=== PATIENT | female | born 1960 | race Caucasian/White ===

== ENCOUNTER 2018-10-22 06:10 | Inpatient (IN) | payer OTHER ==
[2018-10-22] MEDS ORDERED: SEVOFLURANE 15 MIN (07:00)
[2018-10-22] MEDS: POLYMYXIN/BACITRACIN 1L IRRIG (07:47)
[2018-10-22] MEDS ORDERED: MIDAZOLAM 1 MG/ML 2 ML INJ (08:37)
[2018-10-22] MEDS: POLYMYXIN/BACITRACIN 1L IRRIG IRR (11:54)
[2018-10-22] MEDS ORDERED: CEFAZOLIN 1 GM INJ (11:58)
[2018-10-22] MEDS ORDERED: LIDOCAINE 2% (SDV) 5 ML INJ (11:58)
[2018-10-22] MEDS ORDERED: ONDANSETRON 4 MG INJ (11:58)
[2018-10-22] MEDS ORDERED: ROCURONIUM 50 MG INJ (11:58)
[2018-10-22] MEDS ORDERED: PROPOFOL 20 ML (11:58)
[2018-10-22] MEDS ORDERED: ROPIVACAINE 0.5 % 30 ML VIAL (12:00)
[2018-10-22] MEDS ORDERED: hydrALAzine 20 MG INJ IV ×2 (13:00→21:30)
[2018-10-22] MEDS ORDERED: NALOXONE (0.4 MG/ML) INJ IV (13:00)
[2018-10-22] MEDS ORDERED: DIPHENHYDRAMINE 50 MG INJ IV (13:00)
[2018-10-22] MEDS ORDERED: ONDANSETRON 4 MG INJ IV ×2 (13:00→21:30)
[2018-10-22] MEDS ORDERED: LABETALOL HCL 20MG INJ IV (13:00)
[2018-10-22] MEDS ORDERED: METOCLOPRAMIDE 10 MG INJ IV (13:00)
[2018-10-22] MEDS ORDERED: MEPERIDINE 25 MG INJ IV (13:00)
[2018-10-22] MEDS ORDERED: KETOROLAC 30 MG INJ IV (13:00)
[2018-10-22] MEDS ORDERED: FENTAnyl 50 MCG/ML VIAL IV (13:00)
[2018-10-22] MEDS ORDERED: HYDROmorphONE 1 MG/5 ML IV SYRINGE IV ×2 (13:00)
[2018-10-22] MEDS: ATENOLOL 25 MG TAB PO (15:59)
[2018-10-22] MEDS: ATORVASTATIN 40 MG TAB PO (20:09)
[2018-10-22] MEDS: OXYCODONE/ACETAMINOPHEN (10/325) TAB PO (20:10)
[2018-10-22] MEDS: ZOLPIDEM 5 MG TAB PO (20:38)
[2018-10-22] MEDS ORDERED: ACETAMINOPHEN 325 MG TAB PO (21:30)
[2018-10-22] MEDS: CEPASTAT LOZENGE MT (23:43)
[2018-10-23] MEDS: OXYCODONE/ACETAMINOPHEN (10/325) TAB PO ×3 (02:53→12:55)
[2018-10-23] MEDS: ATENOLOL 25 MG TAB PO (08:38)
== END 2018-10-23 13:45 | disposition home health service (06) | DRG 469 ==
LOC: REC 06:10 → MS1 14:22
PROC: 0SRF0JZ Replacement of Right Ankle Joint with Synthetic Substitute, Open Approach (ICD-10-PCS; principal; 2018-10-22 07:30)
PROC: 0QPG04Z Removal of Internal Fixation Device from Right Tibia, Open Approach (ICD-10-PCS; 2018-10-22 07:30)
PROC: 0L8N0ZZ Division of Right Lower Leg Tendon, Open Approach (ICD-10-PCS; 2018-10-22 07:30)
DX: M19.171 Post-traumatic osteoarthritis, right ankle and foot (principal); T84.84XA Pain due to internal orthopedic prosthetic devices, implants and grafts, initial encounter; M21.6X1 Other acquired deformities of right foot; Y79.8 Miscellaneous orthopedic devices associated with adverse incidents, not elsewhere classified; M67.01 Short Achilles tendon (acquired), right ankle; G89.29 Other chronic pain; Z47.2 Encounter for removal of internal fixation device; S82.891S Other fracture of right lower leg, sequela; X58.XXXS Exposure to other specified factors, sequela
CPT/HCPCS: 73610-RT; 88300; 88304; 88311